=== PATIENT | male | born 1985 | race Caucasian/White ===

== ENCOUNTER 2017-03-26 10:21 | Outpatient (CLI) | payer OTHER | END 2017-03-26 10:22 | disposition home or self-care (01) | LOC: DTY/OP 10:21 | PROVIDERS: ATTEND Surgery | DX: Z01.818 Encounter for other preprocedural examination (principal); E66.01 Morbid (severe) obesity due to excess calories | CPT/HCPCS: 97802 ==

== ENCOUNTER 2017-03-26 16:30 | Inpatient (IN) | payer OTHER ==
[2017-03-26 16:53] VITALS: BMI 44.3
[2017-03-28] MEDS ORDERED: CEFAZOLIN/Water 2 GM/20 ML SYRINGE ONE (07:00)
[2017-03-28] MEDS ORDERED: Heparin 5,000 UNITS/ML VIAL ONE (07:00)
[2017-03-28] MEDS ORDERED: Bupivacaine/Epinephrine 0.25% 30 ML VIAL ONE ×2 (07:03→07:49)
[2017-03-28] MEDS ORDERED: Midazolam HCl 2 mg/2 ml Vial ONE (07:15)
[2017-03-28] MEDS ORDERED: Fentanyl 250 MCG/5 ML VIAL ONE (07:15)
[2017-03-28] MEDS ORDERED: Hydrocodone-Acetamin 15 ML UDCUP PO PRN ×2 (09:01→09:03)
[2017-03-28] MEDS ORDERED: Ondansetron HCl/PF 4 MG/2 ML Vial IVP PRN ×2 (09:01→09:03)
[2017-03-28] MEDS ORDERED: diphenhydrAMINE 50 MG/ML VIAL IVP PRN ×2 (09:01→09:03)
[2017-03-28] MEDS ORDERED: hydrALAZINE 20 MG/ML VIAL SLOW IVP PRN ×2 (09:01→09:03)
[2017-03-28] MEDS ORDERED: Dextrose 50% Abboject 50 ML SYRINGE SLOW IVP PRN ×2 (09:01→09:03)
[2017-03-28] MEDS ORDERED: Dextrose 5% in Water 1,000 ML IV PRN ×2 (09:01→09:03)
[2017-03-28] MEDS ORDERED: Promethazine HCl 25 MG/ML VIAL IM PRN ×2 (09:01→09:03)
[2017-03-28] MEDS ORDERED: Meperidine HCl/PF 25 MG/ML VIAL ONE (09:16)
[2017-03-28] MEDS ORDERED: Fentanyl 100 MCG/2 ML VIAL ONE ×2 (09:37→10:02)
--- NOTE | 2017-03-28 10:18 | OP ---
DATE OF PROCEDURE: 03/28/2017 PREOPERATIVE DIAGNOSIS: Morbid obesity. SURGEON: Matias Mix M.D. PROCEDURE: Laparoscopic sleeve gastrectomy with intraoperative esophagogastroscopy. INDICATIONS: This is a 31-year-old male, morbidly obese, who has attempted multiple weight loss prog ritika without success. FINDINGS: He had excessive amount of visceral fat as well as a very large omentum. A 38 [place] boug ie was used. PROCEDURE IN DETAIL: After informed consent was obtained, the patient was taken to the operating jackie m and given general endotracheal anesthesia. He was placed in the supine position. The abdomen was prepped and draped in the usual fashion. Local anesthesia infiltrated subcutaneously and deep. A 12 mm incision was performed 8 inches from the xiphoid slightly to the left. Veress needle inserted. Drop test performed. Pneumoperitoneum was created to a volume of 2 liters of carbon dioxide, utilizi ng a bladeless 12 mm trocar and 0 degree laparoscope direct visual entry in the abdominal cavity was performed. Pneumoperitoneum was created to a pressure of 15 mmHg. A 0 degree laparoscope inserted a nd under direct vision, a Nathansen liver retractor inserted. Left lobe of liver retracted superiorl y. Pylorus identified, a 12 mm port placed on the right beneath it and two 12s placed left subcostal . The omentum was taken off the greater curvature of 5 cm from the pylorus utilizing a LigaSure. Sh ort gastrics divided with the LigaSure and left for crura defined with the LigaSure. A 38-[place] deep gie inserted directed into the antrum. The linear 60 mm green load stapler used to divide the antrum to the bougie, gold load along the bougie, and a series of blues through the angle of His. Intraope rative endoscopy was performed. The video endoscope inserted under direct vision and advanced into t he sleeve. The staple line inspected. There was no bleeding. Staple line then tested by inflating the new stomach with pressurized air under water. There was no air leak. Stomach decompressed. Sco pe removed. The remnant stomach removed from the abdomen through the left lateral port site. The fa scia closed with 0 Vicryl suture and the GraNee needle. Trocars and retractors removed. Hemostasis was assured. The skin closed with interrupted 4-0 Rapide. Dermabond applied. The patient tolerated the procedure well and transferred to recovery in good condition. Sponge and needle count verified correct x2.
[2017-03-28] MEDS ORDERED: Morphine 4 MG/ML VIAL ONE (10:23)
[2017-03-28] MEDS ORDERED: Morphine 4 MG/ML Carpuject SLOW IVP PRN (10:33)
[2017-03-28] MEDS ORDERED: Acetaminophen 1,000 MG in Premix Bag 1 BAG IVPB PRN (10:33)
[2017-03-28] MEDS ORDERED: Morphine 4 MG/ML VIAL SLOW IVP PRN (11:50)
[2017-03-28] MEDS ORDERED: Ketorolac Tromethamine 30 MG/ML VIAL IVP SCH (12:00)
[2017-03-28] MEDS: D5 1/2 NS w/20 mEq KCL 1,000 ML IV SCH ×2 (12:09→17:54)
[2017-03-28] MEDS: Ketorolac Tromethamine 30 MG/ML VIAL IVP SCH ×2 (14:21→20:37)
[2017-03-28] MEDS ORDERED: Dexamethasone 20 MG/5 ML VIAL ONE (16:10)
[2017-03-28] MEDS ORDERED: Glycopyrrolate 0.2 MG/ML 5 ML SYRINGE ONE (16:10)
[2017-03-28] MEDS ORDERED: Lidocaine 1% PF 5 ML VIAL ONE (16:10)
[2017-03-28] MEDS ORDERED: Propofol 200 MG/20 ML VIAL ONE (16:10)
[2017-03-28] MEDS ORDERED: Ketorolac Tromethamine 30 MG/ML VIAL ONE (16:10)
[2017-03-28] MEDS ORDERED: Ondansetron HCl/PF 4 MG/2 ML Vial ONE (16:10)
[2017-03-29] MEDS: D5 1/2 NS w/20 mEq KCL 1,000 ML IV SCH ×2 (01:31→04:02)
[2017-03-29] MEDS: Ketorolac Tromethamine 30 MG/ML VIAL IVP SCH ×2 (03:14→09:02)
[2017-03-29 06:17] LABS: #Lymphocytes 1.4 thou/uL (1.20-3.40); #Monocytes 1.1 thou/uL (0.11-0.59); #Neutrophils 11.2 thou/uL (1.40-6.50); %Basophils 0.1 % (0.0-1.0); %Eosinophils 0.2 % (0.0-10.0); %Lymphocytes 10.1 % (21.0-51.0); %Monocytes 8.1 % (0.0-10.0); Hematocrit 42.1 % (42.0-52.0); Mean Platelet Volume 9.6 fL (7.4-10.4); Red Blood Cell (RBC) Count 4.45 mill/uL (4.70-6.10); White Blood Cell (WBC) Count 13.8 thou/uL (4.8-10.8)
[2017-03-29 06:34] LABS: Anion Gap 10 mmol/L (10-20); BUN (Urea Nitrogen) 8 mg/dL (8.9-20.6); Calc. Creatinine Clearance 227 mL/min (70-130); Calcium 8.8 mg/dL (7.8-10.44); Carbon Dioxide 27 mmol/L (22-29); Chloride 105 mmol/L (98-107); Estimated GFR-MDRD 90
[2017-03-29] MEDS ORDERED: Pantoprazole 40 MG VIAL IVP SCH ×2 (09:00)
[2017-03-29] MEDS ORDERED: Enoxaparin Sodium 40 MG/0.4 ML SYRINGE SC SCH (09:00)
[2017-03-29] MEDS ORDERED: Iopamidol 300 61% 30 ML VIAL ONE (11:39)
--- NOTE | 2017-03-29 12:16 | RAD ---
SINGLE CONTRAST UPPER GI: HISTORY: A 31-year-old male, status post gastric sleeve surgery. TECHNIQUE: The patient swallowed 15 mL of Gastrografin orally. FINDINGS: Contrast media did pass through the postoperative stomach. No evidence of extravasation or obstructi on. IMPRESSION: Unremarkable post gastric sleeve surgery. POS: [facility]
[2017-03-29 13:34] VITALS: BP 139/84; TEMP 98.6
--- NOTE | 2017-03-29 21:38 | DIS ---
DISCHARGE DIAGNOSIS: Morbid obesity. PROCEDURES DURING ADMISSION: Laparoscopic sleeve gastrectomy, intraoperative esophagogastroscopy, po stoperative Gastrografin swallow. HOSPITAL COURSE: The patient was admitted, taken to the operating room where he underwent sleeve gas trectomy. Postoperatively, swallow was fine, started on liquids. He is tolerating well. He is disc harged home in good condition on hydrocodone and Zofran and followup with me in 2 weeks.
== END 2017-03-29 16:24 | disposition home or self-care (01) | DRG 621 ==
LOC: SURG A 03-28 05:54
PROVIDERS: ADMIT Surgery; ATTEND Surgery
PROC: 0DB64Z3 Excision of Stomach, Percutaneous Endoscopic Approach, Vertical (ICD-10-PCS; principal; 2017-03-28)
DX: E66.01 Morbid (severe) obesity due to excess calories (principal); G47.30 Sleep apnea, unspecified; Z68.41 Body mass index [BMI] 40.0-44.9, adult; Z88.0 Allergy status to penicillin; Z88.1 Allergy status to other antibiotic agents; Z82.49 Family history of ischemic heart disease and other diseases of the circulatory system
CPT/HCPCS: 36415; 74241; 80048; 85025; 88307; 88312; C9113; J0131; J1100; J1644; J1650; J1885; J2001; J2175; J2250; J2270; J2405; J2704; J3010

== ENCOUNTER 2017-03-26 16:41 | Outpatient (CLI) | payer BC, OTHER ==
[2017-03-26 17:58] LABS: #Eosinphils 0.1 thou/uL (0.0-0.7); #Lymphocytes 2.6 thou/uL (1.20-3.40); #Monocytes 0.8 thou/uL (0.11-0.59); #Neutrophils 5.9 thou/uL (1.40-6.50); %Basophils 0.4 % (0.0-1.0); %Eosinophils 1.3 % (0.0-10.0); %Lymphocytes 27.3 % (21.0-51.0); %Monocytes 7.9 % (0.0-10.0); Hematocrit 44.2 % (42.0-52.0); Mean Platelet Volume 8.6 fL (7.4-10.4); Red Blood Cell (RBC) Count 4.69 mill/uL (4.70-6.10); White Blood Cell (WBC) Count 9.4 thou/uL (4.8-10.8)
--- NOTE | 2017-03-26 18:06 | RAD ---
CHEST TWO VIEWS: History: Pre-operative exam. Comparison: None. FINDINGS: Normal cardiac silhouette. The pulmonary vessels and hilum are normal. No masses or consolidation. No pneumothorax or osseous abnormalitites. IMPRESSION: No acute cardiopulmonary process. POS: [facility]
[2017-03-26 18:23] LABS: ALT (SGPT) 31 U/L (8-55); AST (SGOT) 23 U/L (5-34); Alkaline Phosphatase 67 U/L (40-150); Anion Gap 12 mmol/L (10-20); BUN (Urea Nitrogen) 18 mg/dL (8.9-20.6); Bilirubin, Direct 0.2 mg/dL (0.1-0.3); Bilirubin, Total 0.3 mg/dL (0.2-1.2); Calc. Creatinine Clearance 0 mL/min (70-130); Calcium 9.5 mg/dL (7.8-10.44); Carbon Dioxide 26 mmol/L (22-29); Chloride 104 mmol/L (98-107); Estimated GFR-MDRD 85; Globulin 2.7 g/dL (2.4-3.5); Protein, Total 7.2 g/dL (6.0-8.3)
[2017-03-26 20:58] LABS: Hemoglobin A1c 5.4 % (4.0-6.0)
--- NOTE | 2017-03-27 13:13 | EKG ---
Test Reason : Blood Pressure : / mmHG Vent. Rate : 059 BPM Atrial Rate : 059 BPM P-R Int : 154 ms QRS Dur : 088 ms QT Int : 378 ms P-R-T Axes : 003 007 -20 degrees QTc Int : 374 ms Sinus bradycardia with sinus arrhythmia Voltage criteria for left ventricular hypertrophy Inferior infarct , age undetermined , possibly with Q's III and aVf. Abnormal ECG No previous ECGs available Confirmed by PAPITO SILVA ([id number]) on 03/27/2017 1:13:18 PM Referred By: SHANIA Confirmed By:PAPITO SILVA
== END 2017-03-26 16:42 | disposition home or self-care (01) ==
LOC: LABBT 16:41
PROVIDERS: ATTEND Surgery
DX: Z01.818 Encounter for other preprocedural examination (principal)
CPT/HCPCS: 71020; 80053; 80076; 83036; 85025; 93005; 93010

== ENCOUNTER 2018-03-27 21:42 | Emergency (ER) | payer BC ==
[2018-03-27] MEDS ORDERED: Morphine 4 MG/ML VIAL ONE ×2 (21:58→22:42)
[2018-03-27] MEDS ORDERED: Thiamine HCl 200 MG/2 ML VIAL ONE (21:58)
[2018-03-27] MEDS ORDERED: Ondansetron PF 4 MG/2 ML Vial ONE (21:58)
[2018-03-27 22:16] LABS: #Basophils 0.1 thou/uL (0.0-0.2); #Eosinphils 0.1 thou/uL (0.0-0.7); #Lymphocytes 4.1 thou/uL (1.20-3.40); #Monocytes 0.9 thou/uL (0.11-0.59); #Neutrophils 6.4 thou/uL (1.40-6.50); %Basophils 0.9 % (0.0-1.0); %Lymphocytes 35.1 % (21.0-51.0); %Monocytes 7.9 % (0.0-10.0); %Neutrophils 55.1 % (42.0-75.0); Hemoglobin 14.5 g/dL (14.0-18.0); Mean Corpuscular HGB CONC 35.7 g/dL (32.0-36.0); Mean Corpuscular Hemoglobin 31.1 pg (27.0-31.0); Mean Corpuscular Volume 87.2 fL (78.0-98.0); Mean Platelet Volume 9.9 fL (7.4-10.4); Platelet Count 172 thou/uL (130-400); RBC Distribution Width 10.3 % (11.5-14.5); Red Blood Cell (RBC) Count 4.66 mill/uL (4.70-6.10); White Blood Cell (WBC) Count 11.5 thou/uL (4.8-10.8)
[2018-03-27 22:29] LABS: ALT (SGPT) 12 U/L (8-55); AST (SGOT) 14 U/L (5-34); Albumin 4.4 g/dL (3.5-5.0); Alkaline Phosphatase 69 U/L (40-150); Anion Gap 15 mmol/L (10-20); BUN (Urea Nitrogen) 12 mg/dL (8.9-20.6); Bilirubin, Total 0.4 mg/dL (0.2-1.2); Calc. Creatinine Clearance 0 mL/min (70-130); Calcium 9.8 mg/dL (7.8-10.44); Carbon Dioxide 26 mmol/L (22-29); Chloride 106 mmol/L (98-107); Estimated GFR-MDRD Greater than 90; Globulin 2.8 g/dL (2.4-3.5); Glucose 104 mg/dL (70-105); Lipase 36 U/L (8-78); Potassium 3.5 mmol/L (3.5-5.1); Protein, Total 7.2 g/dL (6.0-8.3); Sodium 143 mmol/L (136-145)
--- NOTE | 2018-03-27 22:57 | CT ---
CT OF ABDOMEN AND PELVIS PERFORMED WITH INTRAVENOUS CONTRAST ENHANCEMENT: 03/27/18 HISTORY: Abdominal pain. The lung bases are clear. The liver, spleen, pancreas and gallbladder regions appear unremarkable. Right and left adrenal gland s and right and left kidneys are normal in size. There is no significant periaortic or mesenteric joey nopathy. Postoperative changes of the stomach are present. CT of pelvis performed with contrast enhancement. The appendix is normal. A tiny fat containing parau mbilical hernia is seen. No adenopathy, mass or free fluid. IMPRESSION: No acute abnormalities of the abdomen or pelvis. POS: [facility]
[2018-03-27] MEDS ORDERED: Mag-Al Plus 1200 MG/1200 MG/120 MG/30 ML UDCUP ONE (23:01)
[2018-03-27] MEDS ORDERED: Lidocaine Viscous Sol 2% 15 ml UD Cup ONE (23:01)
[2018-03-27 23:23] LABS: Bilirubin Negative (Negative); Blood, Urine Negative (Negative); Clarity Clear (Clear); Glucose, Urine (Dipstick) Negative (Negative); Leukocyte Negative (Negative); Nitrite Negative (Negative); Protein, Urine (Dipstick) Negative (Neg-Trace); Specific Gravity, Urine 1.015 (1.005-1.030); Urobilinogen 0.2 mg/dL (0.2-1.0); pH, Urine 8.5 (5.0-9.0)
[2018-03-27] MEDS ORDERED: Ketorolac Tromethamine 30 MG/ML VIAL ONE (23:39)
[2018-03-27] MEDS ORDERED: Fentanyl 100 MCG/2 ML VIAL ONE (23:39)
== END 2018-03-28 00:47 | disposition home or self-care (01) ==
LOC: SCSER 21:42
DX: R10.13 Epigastric pain (principal); M54.9 Dorsalgia, unspecified
CPT/HCPCS: 74177; 80053; 81003; 83690; 85025; 96365; 96366; 96375; 96376; J1885; J2270; J2405; J3010; J3411

== ENCOUNTER 2018-03-30 07:25 | Day surgery (SDC) | payer BC ==
[~2018-03-30 07:25] MED LIST: Bupivacaine HCl 0.5%/Epinephrine 1:200,000/PF 30 ml Vial ONE; Iothalamate Meglumine 60% 50 ML VIAL FS ONE
[2018-03-30] MEDS ORDERED: Ketorolac Tromethamine 30 MG/ML VIAL ONE (07:49)
[2018-03-30] MEDS ORDERED: Piperacillin/Tazobactam 4.5 GM in Sodium Chloride 0.9% 100 ML IVPB SCH (08:00)
[2018-03-30] MEDS ORDERED: Midazolam HCl 2 mg/2 ml Vial ONE (08:04)
[2018-03-30] MEDS ORDERED: Fentanyl 100 MCG/2 ML VIAL ONE ×2 (08:04→09:30)
[2018-03-30] MEDS ORDERED: Piperacillin/Tazobactam 3.375 GM VIAL ONE (08:09)
--- NOTE | 2018-03-30 09:19 | HP ---
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 In the last three days, he has been having severe right upper quadrant pain and back radiation. He presented to [facility] ER, was reportedly given the opportunity for imaging, but felt better and chose to leave after a normal CBC and comp met. The patient presents to see Dr. Fuller for ongoing right upper quadrant pain and back radiation. The patient after evaluation was felt to possibly have appendicitis, sent to [facility], where he had a CAT scan of the abdomen and pelvis noting changes consistent with acute cholecystitis and cholelithiasis. The patient left [facility] last night at 5:30 p.m. after I discussed with [facility] Radiology techs requested that they give him a phone number. The patient states he called several times, but had a busy signal. Then, after not hearing from him, I called [facility] Radiology techs and obtained the patient's cell phone number, called him and he had been given the wrong cell phone number to call me. After discussion at that late hour as he is already home in [place], had been drinking water; decision, he was given options admission to the hospital overnight for pain control and fluids, but he states he was tolerating liquids and he would prefer to come in this morning for laparoscopic cholecystectomy. ALLERGIES: THE PATIENT REPORTS AN ALLERGY TO LEVAQUIN, PRURITIS. HE STATES THAT BIAXIN AND AUGMENTIN CAUSE GI UPSET WHEN HE TAKES THEM. SOCIAL HISTORY: Tobacco, none. Alcohol, none. MEDICATIONS: Vitamins. PAST SURGICAL HISTORY: Laparoscopic sleeve gastrectomy a year ago, losing 330 pounds to 217 pounds, left knee surgery, patella, tonsillectomy, mammoplasty reduction. PAST MEDICAL HISTORY: Noncontributory. REVIEW OF SYSTEMS: Ten-point noncontributory. PHYSICAL EXAMINATION: GENERAL: The patient is awake, alert, and oriented. NEUROLOGICAL: Intact without deficit. HEENT: Sclerae nonicteric. SKIN: Nonjaundiced. LUNGS: Clear to auscultation. CARDIAC: Regular rate and rhythm without murmur or gallop. ABDOMEN: Soft. Tenderness in his right upper quadrant. Positive Steiner sign. EXTREMITIES: Unremarkable. LABORATORY DATA: White count 11, hemoglobin 14. Comprehensive metabolic profile normal. Liver function tests normal. Lipase 36 on 03/27/2018. ASSESSMENT AND PLAN: Acute cholecystitis, cholelithiasis, positive Steiner sign with CAT scan supportive, and normal liver function tests. No evidence of biliary ductal dilatation. We would recommend laparoscopic video cholecystectomy. Risks of infection, bleeding, visceral and biliary injury discussed. Open procedure discussed. Questions answered. Job ID: [id number]
[2018-03-30] MEDS ORDERED: Morphine 2 MG/ML SYRINGE ONE (10:05)
[2018-03-30] MEDS ORDERED: HYDROcodone/Acetaminophen 5/325 mg Tablet ONE (10:34)
--- NOTE | 2018-03-30 11:39 | OP ---
DATE OF PROCEDURE: 03/30/2018 PREOPERATIVE DIAGNOSES: Acute cholecystitis, cholelithiasis, 1 year status post laparoscopic sleeve gastrectomy, 150-pound weight loss. POSTOPERATIVE DIAGNOSES: Acute cholecystitis, cholelithiasis, 1 year status post laparoscopic sleeve gastrectomy, 150-pound weight loss. PROCEDURES PERFORMED: Laparoscopic video cholecystectomy. FINDINGS: Multiple small stones, acutely inflamed gallbladder. ANESTHESIA: General, local of 0.5% Marcaine with epinephrine 30 mL. DESCRIPTION OF PROCEDURE: The patient was taken to the operating room. Under general anesthesia, abdomen was clipped, prepared with ChloraPrep and draped in the routine fashion. A 0.5% Marcaine with epinephrine was infiltrated in the skin and subcutaneous tissue about each port site. Infraumbilical incision was made. Pneumoperitoneum to 15 mmHg was obtained with a Veress needle, replaced with a 5 port, and the laparoscope inserted. A right subxiphoid incision was made, and an 11 port was placed. A right subcostal incision was made, midclavicular and anterior axillary lines, and 5 port was placed. The fundus of the gallbladder was acutely inflamed, thickened wall, grasped and reflected cephalad. Liver appeared to be normal. The infundibulum was grasped and reflected laterally. Cystic artery and duct dissected free. Critical view obtained. Cystic artery and duct double clipped proximally and divided, and gallbladder and contents dissected free from the liver bed, obtaining good hemostasis prior to division of the final peritoneal attachments. Gallbladder inflamed and multiple stones were removed and fragmented and submitted to Pathology. Good hemostasis ensured with the cautery. Irrigant pneumoperitoneum evacuated. All instruments were removed. All skin incisions were approximated with interrupted subdermal 4-0 Monocryl and [place] glue applied. Job ID: [id number]
[2018-03-30] MEDS ORDERED: Succinylcholine Chloride 20 MG/ML 10 ml SYRINGE FS ONE (12:47)
[2018-03-30] MEDS ORDERED: PROPOFOL 200 MG/20 ML VIAL ONE (12:47)
[2018-03-30] MEDS ORDERED: Dexamethasone 20 MG/5 ML VIAL ONE (12:47)
[2018-03-30] MEDS ORDERED: Ondansetron PF 4 MG/2 ML Vial ONE (12:47)
[2018-03-30] MEDS ORDERED: Glycopyrrolate 0.2 MG/ML 5 ML SYRINGE ONE (12:47)
[2018-03-30] MEDS ORDERED: Lidocaine 1% PF 5 ML VIAL ONE (12:47)
== END 2018-03-30 11:19 | disposition home or self-care (01) ==
LOC: SDC 07:25
PROVIDERS: ATTEND Specialist
PROC: 0FT44ZZ Resection of Gallbladder, Percutaneous Endoscopic Approach (ICD-10-PCS; principal; 2018-03-30)
DX: K80.00 Calculus of gallbladder with acute cholecystitis without obstruction (principal); K82.8 Other specified diseases of gallbladder; Z79.899 Other long term (current) drug therapy; Z88.0 Allergy status to penicillin; Z88.1 Allergy status to other antibiotic agents; Z88.8 Allergy status to other drugs, medicaments and biological substances; Z98.84 Bariatric surgery status
CPT/HCPCS: 88304; J0131; J0670; J1100; J1610; J1885; J2001; J2250; J2270; J2405; J2543; J2704; J3010; J7050; Q9961